=== PATIENT | female | born 1930 | race Caucasian/White ===

== ENCOUNTER 2016-03-29 18:46 | Emergency (ER) | payer MEDICARE, OTHER ==
--- NOTE | 2016-03-29 19:03 | EKG ---
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
--- NOTE | 2016-03-29 19:27 | RAD ---
PROCEDURE Noncontrast head CT HISTORY Syncope. TECHNIQUE Noncontrast axial cross sectional CT scanning of the head was performed. One or more of the following individualized dose reduction techniques were utilized for this study: 1. Automated exposure control 2. Adjustment of the mA and/or kV according to patient size 3. Use of iterative reconstruction technique COMPARISON None available. FINDINGS No acute intracranial hemorrhage or midline shift or mass-effect or extra-axial fluid collection is seen. Craniotomy of the right temporal region is seen. There is metallic streaking artifact in the anterior [place] consistent with previous aneurysm clip type surgery. Generalized cerebral atrophy is seen. Commensurate ventriculomegaly is seen. There is more prominent enlargement of the anterior horn of the right lateral ventricle due to atrophy from the adjacent encephalomalacia of the right frontal lobe. Mild to moderate bilateral periventricular white matter hypodensity is seen consistent with chronic small vessel ischemic disease in this age group. There is complete opacification of the left sphenoid sinus. . IMPRESSION No acute intracranial hemorrhage is seen. 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 Less sphenoid sinusitis. Electronically signed by: Eliezer Ball MD (Mar 29, 2016 19:26:13)
[2016-03-29 19:30] VITALS: BP 126/61
--- NOTE | 2016-03-29 19:40 | PHYS DOC ---
Past Medical History Past Medical History: CAD, Hypertension, [place], Other Additional Past Medical Histor: FX PELVIS,FEMUR, RIGHT ARM, Past Surgical History: Cholecystectomy, Knee Replacement, Other Additional Past Surgical Histo: LEFT FEMUR,WRISTS,RIGHT ARM,BACK,PELVIS, Alcohol Use: None Drug Use: None Adult General Chief Complaint Chief Complaint: SYNCOPE HPI HPI 85-year-old female who lives at home with her and uses a walker to get around presents after a dizzy spell and his subsequent episode where she think she passed out. The states she was only out briefly. Patient denies any chest pain shortness of breath headache or lateralizing neurologic weakness prior to becoming dizzy. She states she's had this happen before and they were unable to identify exactly why this happened. [] Review of Systems Review of Systems Constitutional: Denies fever or chills [] Eyes: Denies change in visual acuity, redness, or eye pain [] HENT: Denies nasal congestion or sore throat [] Respiratory: Denies cough or shortness of breath [] Cardiovascular: No additional information not addressed in HPI [] GI: Denies abdominal pain, nausea, vomiting, bloody stools or diarrhea [] : Denies dysuria or hematuria [] Musculoskeletal: Denies back pain or joint pain [] Integument: Denies rash or skin lesions [] Neurologic: Denies headache, focal weakness or sensory changes [] Endocrine: Denies polyuria or polydipsia [] Current Medications Current Medications Current Medications Medications (Trade) Dose Ordered Sig/Katherine Start Time Stop Time Status Last Admin Dose Admin Ondansetron HCl 4 mg 4 mg PRN Q8HRS PRN 03/29/16 20:15 03/30/16 20:14 Sodium Chloride (Iv Sodium Chloride 0.9% 1000ml Bag) 1,000 ml @ 125 mls/hr Q8H 03/29/16 20:07 03/30/16 20:06 Allergies Allergies Allergies Coded Allergies Type Severity Reaction Last Updated Verified No Known Drug Allergies 03/29/16 No Physical Exam Physical Exam Constitutional: Well developed, well nourished, no acute distress, non-toxic appearance. [] HENT: Normocephalic, atraumatic, bilateral external ears normal, oropharynx moist, no oral exudates, nose normal. [] Eyes: PERRLA, EOMI, conjunctiva normal, no discharge. [] Neck: Normal range of motion, no tenderness, supple, no stridor. [] Cardiovascular:Heart rate regular rhythm, no murmur [] Lungs & Thorax: Bilateral breath sounds clear to auscultation [] Abdomen: Bowel sounds normal, soft, no tenderness, no masses, no pulsatile masses. [] Skin: Warm, dry, no erythema, no rash. [] Back: No tenderness, no CVA tenderness. [] Extremities: No tenderness, no cyanosis, no clubbing, ROM intact, no edema. [] Neurologic: Alert and oriented X 3, normal motor function, normal sensory function, no focal deficits noted. [] Psychologic: Affect normal, judgement normal, mood normal. [] Current Patient Data Vital Signs Vital Signs Date Time Temp Pulse Resp B/P Pulse Ox O2 Delivery O2 Flow Rate FiO2 03/29/16 18:46 97.9 76 17 131/60 94 Room Air 97.9 Lab Values Laboratory Tests Test 03/29/16 19:40 White Blood Count 5.5x10^3/uL (4.0-11.0) Red Blood Count 3.74x10^6/uL (3.50-5.40) Hemoglobin 10.4g/dL (12.0-15.5) L Hematocrit 31.6% (36.0-47.0) L Mean Corpuscular Volume 85fL (79-100) Mean Corpuscular Hemoglobin 28pg (25-35) Mean Corpuscular Hemoglobin Concent 33g/dL (31-37) Red Cell Distribution Width 15.1% (11.5-14.5) H Platelet Count 189x10^3/uL (140-400) Neutrophils (%) (Auto) 72% (31-73) Lymphocytes (%) (Auto) 16% (24-48) L Monocytes (%) (Auto) 7% (0-9) Eosinophils (%) (Auto) 3% (0-3) Basophils (%) (Auto) 1% (0-3) Neutrophils # (Auto) 4.0x10^3uL (1.8-7.7) Lymphocytes # (Auto) 0.9x10^3/uL (1.0-4.8) L Monocytes # (Auto) 0.4x10^3/uL (0.0-1.1) Eosinophils # (Auto) 0.2x10^3/uL (0.0-0.7) Basophils # (Auto) 0.0x10^3/uL (0.0-0.2) Sodium Level 145mmol/L (136-145) Potassium Level 3.8mmol/L (3.5-5.1) Chloride Level 108mmol/L (98-107) H Carbon Dioxide Level 30mmol/L (21-32) Anion Gap 7 (6-14) Blood Urea Nitrogen 31mg/dL (7-20) H Creatinine 1.5mg/dL (0.6-1.0) H Estimated GFR (Cockcroft-Gault) 33.2 BUN/Creatinine Ratio 21 (6-20) H Glucose Level 123mg/dL (70-99) H Calcium Level 8.9mg/dL (8.5-10.1) Total Bilirubin 0.2mg/dL (0.2-1.0) Aspartate Amino Transferase (AST) 13U/L (15-37) L Alanine Aminotransferase (ALT) 15U/L (14-59) Alkaline Phosphatase 75U/L (46-116) Troponin I Quantitative < 0.017ng/mL (0.000-0.055) Total Protein 7.1g/dL (6.4-8.2) Albumin 3.6g/dL (3.4-5.0) Albumin/Globulin Ratio 1.0 (1.0-1.7) Laboratory Tests 03/29/16 19:40 Laboratory Tests 03/29/16 19:40 EKG EKG [EKG: Normal sinus rhythm rate of [address]-T changes] Radiology/Procedures Radiology/Procedures [] Impressions: PROCEDURE: HEAD WO CONTRAST PROCEDURE Noncontrast head CT HISTORY Syncope. TECHNIQUE Noncontrast axial cross sectional CT scanning of the head was performed. One or more of the following individualized dose reduction techniques were utilized for this study: 1. Automated exposure control 2. Adjustment of the mA and/or kV according to patient size 3. Use of iterative reconstruction technique COMPARISON None available. FINDINGS No acute intracranial hemorrhage or midline shift or mass-effect or extra-axial fluid collection is seen. Craniotomy of the right temporal region is seen. There is metallic streaking artifact in the anterior [place] consistent with previous aneurysm clip type surgery. Generalized cerebral atrophy is seen. Commensurate ventriculomegaly is seen. There is more prominent enlargement of the anterior horn of the right lateral ventricle due to atrophy from the adjacent encephalomalacia of the right frontal lobe. Mild to moderate bilateral periventricular white matter hypodensity is seen consistent with chronic small vessel ischemic disease in this age group. There is complete opacification of the left sphenoid sinus. . IMPRESSION No acute intracranial hemorrhage is seen. 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 Less sphenoid sinusitis. Course & Med Decision Making Course & Med Decision Making Pertinent Labs and Imaging studies reviewed. (See chart for details) [ED course: Evaluation reveals an 85-year-old female with a syncopal episode. I actually thought the patient warranted admission and spoke with the hospitalist who agreed to accept her however the patient and her were both adamant that she didn't did not need to be admitted and would not stay overnight. I warned the patient has syncope could be a precursor to something more serious. They understood this morning and decided to go home.] Dragon Disclaimer Dragon Disclaimer This electronic medical record was generated, in whole or in part, using a voice recognition dictation system. Departure Departure Impression: Primary Impression: Syncope Disposition: 01 HOME, SELF-CARE Condition: STABLE Patient Instructions: Syncope Additional Instructions: Follow with your family doctor this week for recheck. Return to the emergency department with any new or concerning symptoms Problem Qualifiers Primary Impression: Syncope Syncope type: unspecified Qualified Code: R55 - Syncope and collapse ISMA MARTINS DO Mar 29, 2016 19:40
[2016-03-29] MEDS ORDERED: IV NORMAL SALINE 1000ML BAG 1,000 ML IV SCH (20:07)
[2016-03-29 20:11] LABS: BASO % 1 % (0-3); EOS % 3 % (0-3); HEMATOCRIT 31.6 % (36.0-47.0); HEMOGLOBIN 10.4 g/dL (12.0-15.5); LYMPH # 0.9 x10^3/uL (1.0-4.8); LYMPH % 16 % (24-48); MEAN CORPUSCULAR HEMOGLOBIN 28 pg (25-35); MEAN CORPUSCULAR HGB CONC 33 g/dL (31-37); MEAN CORPUSCULAR VOLUME 85 fL (79-100); MONO % 7 % (0-9); NEUT % 72 % (31-73); PLATELET COUNT 189 x10^3/uL (140-400); RED BLOOD COUNT 3.74 x10^6/uL (3.50-5.40); RED CELL DISTRIBUTION WIDTH 15.1 % (11.5-14.5); WHITE BLOOD COUNT 5.5 x10^3/uL (4.0-11.0)
[2016-03-29] MEDS ORDERED: ONDANSETRON PF 4 MG/2 ML VIAL. IV PRN (20:15)
[2016-03-29 20:22] LABS: CALCIUM 8.9 mg/dL (8.5-10.1); CREATININE 1.5 mg/dL (0.6-1.0); GFR 33.2; POTASSIUM 3.8 mmol/L (3.5-5.1)
[2016-03-29 20:29] LABS: ALBUMIN 3.6 g/dL (3.4-5.0); TOTAL BILIRUBIN 0.2 mg/dL (0.2-1.0); TOTAL PROTEIN 7.1 g/dL (6.4-8.2)
[2016-03-29] MEDS ORDERED: NITR100C62 PO (20:36)
--- NOTE | 2016-03-30 07:48 | RAD ---
Single view chest History:Syncope An AP view of the chest is submitted. Comparison: None. Findings: There is a fairly large gas containing hiatal hernia. Heart size is considered within normal limits. There are somewhat low lung volumes and mild elevation of the right hemidiaphragm. There is no significant pleural fluid or pneumothorax. There is no lobar consolidation, likely mild atelectasis left lung base. 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 There may be faint nodule of the mid left hemithorax, questionable small nodule of the left suprahilar region. Impression: 1. There is a fairly large gas containing hiatal hernia. 2. 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 3. There is mild left base atelectasis. There may be small nodules of the left hemithorax. [address] evaluation may be beneficial.
== END 2016-03-29 20:45 | disposition home or self-care (01) ==
LOC: ER 18:46
DX: R55 Syncope and collapse (principal); I11.9 Hypertensive heart disease without heart failure; I25.10 Atherosclerotic heart disease of native coronary artery without angina pectoris; I25.2 Old myocardial infarction
CPT/HCPCS: 36415; 70450; 71010; 80053; 83880; 84484; 85027; 93005; 99285-25